=== PATIENT | female | born 1955 | race Caucasian/White ===

== ENCOUNTER 2018-10-25 00:09 | Emergency (ER) | payer MEDICAID ==
[2018-10-25] MEDS ORDERED: OLANZAPINE 5 MG TABLET PO ONE (05:00)
[2018-10-25] MEDS ORDERED: OLANZAPINE 5 MG TABLET ONE (05:01)
== END 2018-10-25 09:21 | disposition home or self-care (01) ==
DX: F29 Unspecified psychosis not due to a substance or known physiological condition (principal); F20.1 Disorganized schizophrenia; E87.6 Hypokalemia; E88.09 Other disorders of plasma-protein metabolism, not elsewhere classified; F32.9 Major depressive disorder, single episode, unspecified; Z73.6 Limitation of activities due to disability; Z60.2 Problems related to living alone
CPT/HCPCS: 36415; 80048; 80076; 80305; 80307; 80329; 85025; 99284; G0480